=== PATIENT | male | born 1985 | race American Indian/Alaskan Native ===

== ENCOUNTER 2016-06-08 18:56 | Emergency (ER) | payer SELFPAY ==
[2016-06-08 18:57] VITALS: BMI 41.1
[2016-06-08 19:07] VITALS: TEMP 98.6
--- NOTE | 2016-06-08 19:26 | ED PDOC ---
Arrival/HPI - General Chief Complaint: Male Genitourinary Time Seen by Provider: 06/08/16 19:21 Historian: Patient - History of Present Illness Narrative History of Present Illness (Text): 06/08/16 19:26 31 y/o male, no pmh, nkda, c/o private part itching x 1 year. Pt. stated that the foreskin region is itching, no urinary symptoms, no penile discharge, no testicular pain, no dizziness, sexually active to only one sexual partners, no weight loss, no night sweat, no recent traveling, no other medical or psychological complaints. Past Medical History - Provider Review Nursing Documentation Reviewed: Yes - Infectious Disease Hx of Infectious Diseases: None - Tetanus Immunization Tetanus Immunization: Unknown - Cardiac Hx Hypertension: Yes Other/Comment: pt took med for htn in 12/2013 finished the med but never followed up with pmd - Integumentary Other/Comment: tatoos - Musculoskeletal/Rheumatological Hx Falls: No - Psychiatric Hx Psychophysiologic Disorder: No Hx Substance Use: No Other/Comment: drinks alcohol a couple beeres during the week and some drinks on weekends, smokes a cigar once a week - Past Surgical History Past Surgical History: No Previous - Anesthesia Hx Anesthesia: No Hx Anesthesia Reactions: No Hx Malignant Hyperthermia: No - Suicidal Assessment Feels Threatened In Home Enviroment: No Family/Social History - Physician Review Nursing Documentation Reviewed: Yes Family/Social History: Unknown Family HX Smoking Status: Light Smoker < 10 Cigarettes Daily Hx Alcohol Use: Yes (beer couple times a week drinks on weekends) Frequency of alcohol use: Socially Hx Substance Use: No Allergies/Home Meds Allergies/Adverse Reactions: Allergies No Known Allergies Allergy (Verified 06/08/16 19:07) Review of Systems - Review of Systems Constitutional: absent: Fatigue, Fevers Eyes: absent: Vision Changes ENT: absent: Hearing Changes Respiratory: absent: Cough, Sputum Cardiovascular: absent: Chest Pain Gastrointestinal: absent: Abdominal Pain, Nausea, Vomiting Genitourinary Male: absent: Dysuria, Frequency, Hematuria, Urinary Output Changes Skin: Rash, Pruritis. absent: Skin Lesions, Laceration, Abscess, Ulcer, Cellulitis Neurological: absent: Headache, Dizziness, Focal Weakness, Gait Changes, Speech Changes, Facial Droop, Disequilibrium, Seizure Physical Exam Vital Signs Reviewed: Yes Vital Signs Temp Pulse Resp BP Pulse Ox 06/08/16 19:02 98.6 F 101 H 19 127/85 97 Temperature: Afebrile Blood Pressure: Normal Pulse: Tachycardic Respiratory Rate: Normal Appearance: Positive for: Well-Appearing, Non-Toxic, Comfortable Pain Distress: None Mental Status: Positive for: Alert and Oriented X 3 - Systems Exam Head: Present: Atraumatic, Normocephalic Pupils: Present: PERRL Extroacular Muscles: Present: EOMI Conjunctiva: Present: Normal Mouth: Present: Moist Mucous Membranes Neck: Present: Normal Range of Motion Respiratory/Chest: Present: Clear to Auscultation, Good Air Exchange. No: Respiratory Distress, Accessory Muscle Use Cardiovascular: Present: Regular Rate and Rhythm, Normal S1, S2. No: Murmurs Abdomen: Present: Normal Bowel Sounds. No: Tenderness, Distention, Peritoneal Signs Genitourinary Male: Present: Other (there is moderately circumsized penis with skin lichenification on the groin and foreskin region, no balanitis, no phymosis or paraphymosis. ). No: Lesions, Penile Discharge, Testicle Tenderness , Penile Swelling, Masses, Erythema, Hernias, Testicle Swelling Back: Present: Normal Inspection Upper Extremity: Present: Normal Inspection. No: Cyanosis, Edema Lower Extremity: Present: Normal Inspection. No: Edema Neurological: Present: GCS=15, CN II-XII Intact, Speech Normal Skin: Present: Warm, Dry, Normal Color. No: Rashes Psychiatric: Present: Alert, Oriented x 3, Normal Insight, Normal Concentration Medical Decision Making ED Course and Treatment: 06/08/16 19:29 -I ordered diflucan for the patient as this is fungal infection. -Pt. refused prophylatic treatment for STD and refused STD testing. 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 - Medication Orders Current Medication Orders: Fluconazole (Diflucan) 200 mg PO STAT STA PRN Reason: Protocol Stop: 06/08/16 19:31 - PA / [employer]ING [employer] / Resident Statement / has reviewed & agrees with the documentation as recorded. Disposition/Present on Arrival - Present on Arrival Any Indicators Present on Arrival: No History of DVT/PE: No History of Uncontrolled Diabetes: No Urinary Catheter: No History of Decub. Ulcer: No History Surgical Site Infection Following: None - Disposition Have Diagnosis and Disposition been Completed?: Yes Diagnosis: Betty infection Disposition: HOME/ ROUTINE Disposition Time: 19:31 Patient Plan: Discharge Condition: GOOD Additional Instructions: Discharge home with lotrisone cream, wash with soap and water twice daily and keep it dry, follow up with your own pmd and division field inspector within 2 days, return to the ER for any new or worsening signs or symptoms. Prescriptions: Clotrimazole/Betamethasone [Lotrisone] 1 appl EXT BID #1 tube Referrals: Eugene Hall MD [Staff Provider] - Follow up with primary Forms: WORK NOTE
[2016-06-08 20:37] VITALS: BP 129/78; PULSE 87; RESP 18; O2SAT 98
== END 2016-06-08 20:10 | disposition home or self-care (01) ==
LOC: ED 18:56
DX: B37.89 Other sites of candidiasis (principal)